=== PATIENT | female | born 1965 | race Caucasian/White ===

== ENCOUNTER 2016-06-22 14:16 | Outpatient (CLI) | payer OTHER ==
--- NOTE | 2016-06-22 16:01 | DIAGNOSTIC IMAGING REPORT ---
PROCEDURE: XR SHOULDER INJECTION (PRE MR) INDICATION: LT SHOULDER PAIN,IMPINGEMENT HX OF SURG TECHNIQUE: Written informed consent was obtained from the patient prior to the procedure. Risks discussed included but were not limited to bleeding, infection, injury to adjacent structures, pain, and allergic reaction. It was agreed to proceed. Slight LPO position with left arm externally rotated. Preliminary fluoroscopic imaging demonstrated no significant degenerative change. An appropriate skin entry site was chosen and marked. The skin was prepped and draped in the usual sterile fashion. Skin and subcutaneous tissue was anesthetized thoroughly with 1% lidocaine. Under intermittent fluoroscopic guidance, a 22 gauge needle was directed into the left glenohumeral joint. Through this, a 10.1 ml mixture of 3 ml 1% lidocaine, 3 ml 0.5% bupivacaine, 4 ml normal saline, and a 0.1 ml gadolinium was injected. Intra-articular position was confirmed by visualization of anatomic landmarks. The patient is allergic to iodinated contrast and this was not used. Three fluoroscopic spot images were acquired documenting the needle in position within the joint. Total fluoro time 0.8 minutes. Cumulative dose 91.51 mGy. The needle was removed, hemostasis was achieved, the skin was cleansed, and a sterile bandage was applied. The patient was helped off the table and sent to the MRI. The patient left the radiology department in stable condition with standard post procedure instructions. COMPARISON: None. FINDINGS: Intra-articular position of the needle. IMPRESSION: 1. Successful pre MRI left shoulder injection without iodinated contrast. 2. MR is pending.
--- NOTE | 2016-07-01 16:07 | DIAGNOSTIC IMAGING REPORT ---
PROCEDURE: MR UPPER EXT JOINT W/CONT-LT INDICATION: LT SHOULDER PAIN,IMPINGEMENT HX OF SURG TECHNIQUE: Axial T1, T1 fat sat, proton density fat sat, coronal proton density, proton density fat sat, T1 fat sat, sagittal proton density, proton density fat sat, and T1 fat sat sequences were obtained through the left shoulder following uncomplicated administration of intra-articular gadolinium earlier the same day. COMPARISON: None available. FINDINGS: Rotator cuff: Attenuation, irregularity, and intermediate signal involving most of the supraspinatus tendon in the anterior portion of the infraspinatus tendon. The subscapularis tendon appears intact. Trace edema in the subacromial subdeltoid bursa but no contrast in the bursa. Biceps tendon: There is a thickened intermediate signal material surrounding the intra-articular portion the biceps tendon. The superior glenohumeral ligament appears redundant. The biceps tendon, however maintains a normal thickness, position, with a trace amount of intrinsic intermediate signal. Osseous structures and articular surfaces: The acromion is type 2 with moderate anterolateral downsloping which impinges on the anterior portion of the supraspinatus tendon. There are three focal hypodensities in the anterior glenoid suggestive of a prior [place]art repair. Prior reported Hill-Sachs lesion is well healed. No significant humeral head deformity. There is posterior subluxation of the humeral head in the glenoid fossa with minor sclerosis along the posterior glenoid, partially imaged given slice selection. No suspicious osseous edema. Moderate cartilage thinning in the anterior glenoid fossa inferiorly and mild cartilage irregularity of the posterior humeral head articular surface. Labral ligamentous complex: The middle glenohumeral ligament is not well seen, potentially attenuated, torn or surgically absent. The anterior labrum is surgically absent or fragmented. The inferior anterior labrum at the potential site of anterior glenohumeral ligament reattachment is irregular. Posterior labrum is diminutive. The anterior and posterior inferior glenohumeral ligaments are lax. Surgical artifacts are seen along the distended capsule inferiorly. Fluid, soft tissues, and joint space: Iatrogenic joint effusion. Minor atrophy of the distal supraspinatus muscle without intramuscular edema. Capsule is thinned and glenohumeral joint space is capacious. Neurovascular bundle appears normal. IMPRESSION: 1. Significant partial-thickness tearing/tendonitis of the supraspinatus secondary to acromial impingement. 2. Postoperative changes involving the labrum and capsule. 3. Mild posterior subluxation of the humeral head with mild cartilaginous loss. Minimal sclerotic change of the glenoid. This raises the possiblity of recurrent instability. 4. Fibrosis around the intra-articular biceps tendon and laxity of the superior glenohumeral ligament (post traumatic versus iatrogenic). Rotator interval remains intact.
== END 2016-06-22 23:00 ==
LOC: XR SRH 14:16
PROC: BP39Y0Z Magnetic Resonance Imaging (MRI) of Left Shoulder using Other Contrast, Unenhanced and Enhanced (ICD-10-PCS; principal; 2016-06-22)
PROC: BW1J1ZZ Fluoroscopy of Upper Extremity using Low Osmolar Contrast (ICD-10-PCS; principal; 2016-06-22)
DX: M75.42 Impingement syndrome of left shoulder (principal); S43.022A Posterior subluxation of left humerus, initial encounter; R93.7 Abnormal findings on diagnostic imaging of other parts of musculoskeletal system